=== PATIENT | male | born 1990 | race Two or more races ===

== ENCOUNTER 2016-03-13 10:05 | Emergency (ER) | payer SELFPAY ==
[~2016-03-13] VITALS: Ht 180.3 cm; Wt 54.4 kg
[2016-03-13] MEDS ORDERED: ACETAMINOPHEN 325 MG TABLET. PO ONE (11:00)
[2016-03-13] MEDS ORDERED: IBUPROFEN 600 MG TABLET. PO ONE (11:00)
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
[2016-03-13 11:12] VITALS: BP 136/93
== END 2016-03-13 11:16 | disposition home or self-care (01) ==
LOC: ER 10:05 → EDBD 10:09 → ER 11:16
DX: S80.11XA Contusion of right lower leg, initial encounter (principal); S20.211A Contusion of right front wall of thorax, initial encounter; F17.200 Nicotine dependence, unspecified, uncomplicated; F12.10 Cannabis abuse, uncomplicated; Z90.49 Acquired absence of other specified parts of digestive tract; V23.4XXA Motorcycle driver injured in collision with car, pick-up truck or van in traffic accident, initial encounter; Y93.55 Activity, bike riding; Y92.89 Other specified places as the place of occurrence of the external cause; Y99.8 Other external cause status
CPT/HCPCS: 99283